=== PATIENT | female | born 2000 | race Caucasian/White ===

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

== ENCOUNTER 2019-08-30 08:31 | Emergency (ER) | payer OTHER ==
[~2019-08-30] VITALS: Ht 154.9 cm; Wt 72.6 kg
== END 2019-08-30 11:20 | disposition home or self-care (01) ==
LOC: ER 08:31
DX: R07.9 Chest pain, unspecified (principal); F17.210 Nicotine dependence, cigarettes, uncomplicated
CPT/HCPCS: 36415; 71046; 81025; 93005; 93010; 96372; 99285-25; J1885